=== PATIENT | male | born 1975 | race Caucasian/White ===

== ENCOUNTER → 2020-03-13 | Outpatient (CLI) | payer OTHER ==
[~2020-03-13] MED LIST: METO-354 PO; ONDAN4ODT PO; PANT20TA2 PO; PNT40TEC
--- NOTE | 2020-03-13 09:47 | Diagnostic Imaging Report ---
PROCEDURE: US Scrotum. TECHNIQUE: Multiple Real-time grayscale images were obtained over the scrotum in various projections bilaterally. INDICATION: Testicular pain. FINDINGS: The right testicle measures 5.0 x 2.3 x 3.0 cm and the left testicle measures 4.3 x 2.1 x 2.7 cm. Both testes demonstrate homogeneous echotexture. No testicular mass is identified. There is normal blood flow to both testes. The right epididymis does contain a 7 mm x 5 mm cyst at the epididymal head. The left epididymis is unremarkable. No hydrocele or varicocele is detected. IMPRESSION: 1. No evidence of testicular mass or vascular compromise. 2. Small right epididymal head cyst. Dictated by: Dictated on workstation # [id number]
== END ==
LOC: RAD 08:49
PROVIDERS: ATTEND Family Medicine
DX: N50.3 Cyst of epididymis (principal)
CPT/HCPCS: 76870

== ENCOUNTER → 2021-03-20 | Outpatient (CLI) | payer OTHER ==
--- NOTE | 2021-03-20 09:18 | Diagnostic Imaging Report ---
INDICATION: Left elbow pain. Time of exam: 8:51 AM 3 views of the left elbow were obtained. Alignment is normal. Joint spaces are well-maintained. No fracture, dislocation or effusion is detected. IMPRESSION: No acute bony abnormality is detected. Dictated by: Dictated on workstation # [id number]
--- NOTE | 2021-03-20 09:24 | Diagnostic Imaging Report ---
Indication: Left shoulder pain. Time of exam: 8:54 AM 3 views of the left shoulder were obtained. Glenohumeral and acromioclavicular alignment are normal. Acromiohumeral space is normal. No fracture or dislocation is detected. Impression: No acute bony abnormality is detected. Dictated by: Dictated on workstation # [id number]
--- NOTE | 2021-03-20 10:49 | Diagnostic Imaging Report ---
PROCEDURE: MRI lumbar spine. INDICATION: Chronic low back pain.. TECHNIQUE: Multiplanar and multisequence magnetic resonance imagine was performed of the lumbar spine without contrast. CORRELATION STUDY: 11/19/2014 FINDINGS: There is normal alignment and curvature of the lumbar spine. The lumbar vertebral body heights are maintained and without geographic lesion. The conus appears unremarkable. T12-L1: Unremarkable. L1-L2: Disc space height and signal intensity unremarkable. No disc bulge or protrusion. Very small perineural cyst on the right present. L2-L3: Preservation disc space height and signal intensity. No significant canal narrowing. Generally stable small 6 mm perineural cyst superior right foramina. Abutment but without mass effect on the axial nerve root. Left foraminal maintained. L3-L4: Mildly prominent ligamentum flavum and facet hypertrophy. No significant canal and/or foraminal narrowing. L4-L5: Mild ligament hypertrophy. Very slight disc desiccation. No significant canal narrowing. Very mild bilateral foraminal narrowing without significant nerve impingement. L5-S1: Moderate loss of disc space height. Disc osteophyte formation result in mild foraminal narrowing and slight abutment of the nerve root. Slight flattening ventral thecal sac. No canal stenosis. IMPRESSION: 1. Mild multilevel degenerative changes are present. Most pronounced findings at the L5-S1 level with the mild foraminal narrowing. Largely owing to disc and osteophyte formation. Dictated by: Dictated on workstation # [id number]
== END ==
LOC: RAD 07:39
PROVIDERS: ATTEND Family Medicine
DX: M47.816 Spondylosis without myelopathy or radiculopathy, lumbar region (principal); M47.817 Spondylosis without myelopathy or radiculopathy, lumbosacral region; M51.36 Other intervertebral disc degeneration, lumbar region; M48.07 Spinal stenosis, lumbosacral region; M25.78 Osteophyte, vertebrae; R32 Unspecified urinary incontinence
CPT/HCPCS: 72148; 73030; 73080

== ENCOUNTER → 2021-04-25 | Outpatient (CLI) | payer OTHER ==
[~2021-04-25] VITALS: Ht 175.3 cm; Wt 70.9 kg
[~2021-04-25] MED LIST changes: +GADOBUTROL 7.5 MMOL/7.5 ML (GADAVIST) VIAL IV ONE; +IOHEXOL 240 MGI/ML 20 ML (OMNIPAQUE) VIAL IV ONE
--- NOTE | 2021-04-25 14:01 | Diagnostic Imaging Report ---
INDICATION: Left shoulder pain and instability. Patient was brought to the procedure room and placed on table in the supine position. Skin of the left shoulder was prepped and draped in the usual sterile fashion. A small amount of 1% lidocaine was utilized for local anesthesia. A 22-gauge needle was advanced into the left shoulder at the rotator interval. A 15 mL solution of iodinated contrast, normal saline, and gadolinium was injected under fluoroscopic observation. 39 seconds of fluoroscopic time was utilized. Needle was removed, and hemostasis was obtained. Patient tolerated the procedure well and was sent to MRI in satisfactory condition. IMPRESSION: Successful left shoulder injection of gadolinium contrast solution, using fluoroscopy. Dictated by: Dictated on workstation # [id number]
--- NOTE | 2021-04-25 16:50 | Diagnostic Imaging Report ---
PROCEDURE: MRI left joint upper extremity with contrast. TECHNIQUE: Multiplanar, multisequence contrast-enhanced MRI of the left upper extremity was accomplished. INDICATION: Pain in the left shoulder. Superior glenoid labrum lesion. COMPARISON: None FINDINGS: No acute fracture is seen in the left shoulder. Alignment is normal. The joint is well distended with contrast. There is minimal degenerative change in the acromioclavicular joint. There are small low-grade partial-thickness tears in the bursal surface of the supraspinatus tendon and at the insertion (image 12 and 14 of series 9). No high-grade partial-thickness or full-thickness tear is seen in the rotator cuff. The long head of the biceps tendon appears normal in course and signal. There is a defect in the anterior superior glenoid labrum. This could represent a sub-labral foramen however there is mild irregularity concerning for a tear (image 7 series 4). No paralabral cyst is seen. The acetabular labrum has a flat undersurface without hooking. The coracoclavicular and coracoacromial ligaments are intact. Soft tissues about the shoulder demonstrate no acute abnormality. IMPRESSION: 1. Small low-grade partial-thickness tears of the distal supraspinatus tendon. 2. Defect in the anterior superior glenoid labrum. This most likely represents a variant sub-labral foramen, although there is some irregularity suggestive of tear. Dictated by: Dictated on workstation # [id number]
== END ==
LOC: RAD 12:45
PROVIDERS: ATTEND Orthopaedic Surgery
DX: S43.432A Superior glenoid labrum lesion of left shoulder, initial encounter (principal); S46.812A Strain of other muscles, fascia and tendons at shoulder and upper arm level, left arm, initial encounter; X58.XXXA Exposure to other specified factors, initial encounter
CPT/HCPCS: 23350; 73040; 73222